=== PATIENT | female | born 1985 | race Caucasian/White ===

== ENCOUNTER 2020-05-22 14:50 | Emergency (ER) | payer MEDICAID ==
[2020-05-22] MEDS ORDERED: Lidocaine 1% with EPINEPHrine 1:100,000 50 ML MDV INFILT ONE (15:34)
[2020-05-22] MEDS ORDERED: Bacitracin Oint 1 GM U/D Packet TOP ONE (15:35)
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
== END 2020-05-22 16:32 | disposition home or self-care (01) ==
LOC: JP.ED 14:50
DX: S01.111A Laceration without foreign body of right eyelid and periocular area, initial encounter (principal); F41.9 Anxiety disorder, unspecified; Z79.899 Other long term (current) drug therapy; W22.8XXA Striking against or struck by other objects, initial encounter
CPT/HCPCS: 12053; 99282-25